=== PATIENT | female | born 1960 | race Caucasian/White ===

== ENCOUNTER → 2016-06-17 | Outpatient (CLI) | payer BC ==
[~2016-06-17] MED LIST: AMIT25TA9 PO; AZIT250T81 PO; PRED20TA PO; ZOLM2.5T5 PO
[2016-06-17 10:33] VITALS: BP 137/77
--- NOTE | 2016-06-17 10:33 | Urgent Care T Sheet Gen (E) ---
Intake General Temperature (Fahrenheit): 97.7 Pulse: 83 Blood Pressure Systolic: 137 Blood Pressure Diastolic: 77 Respirations: 18 SPO2: 98 Description of Symptoms Patient presents with possible sinus infection. States she has had nasal congestion since Michael. States her teeth started to ache a few days ago. Mild cough which she thinks is from drainage. No fever. Been taking DayQuil, Mucinex and Sudafed without lasting relief. History of Present Illness Allergies: Coded Allergies: No Known Allergies (Verified Allergy, 07/03/12) Home Meds Reported Medications Zolmitriptan (Zomig)2.5 Mg Tablet2.5 Mg PO NEEDED 07/03/12 Respiratory Constitutional Symptoms: No syptoms reported EENTM: Nose Congestion Throat pain Respiratory: Cough Cardiovascular: No symptoms reported Gastrointestinal/Abdominal: No symptoms reported All Other Systems Reviewed Remaining Systems: All other systems reviewed with negative findings Past Bailndp-Hzeedt-Tweqbi Hx Surgeries/Hospitalizations Hospitalization/Surgery Hx: NA Respiratory Respiratory History: None Cardiovascular Cardiovascular History: None Neuro/Muscular Neuro/Muscular History: Migraine Genitouinary Genitourinary History: None Gastrointestinal GI/Endocrine History: None Diabetes Diabetes: No Integumentary Integumentary History: None Cancer History of Cancer?: No Physical Exam Physical Exam General Appearance: WD/WN No apparent distress Eyes, Ears, Nose, Throat Ex: TMs normal Pharyngeal erythema (cobblestone appearance) Other (red, swollen nasal turbinates with purulent drainage.) Neck Exam: SuppleNo Lymphadenopathy Respiratory Exam: Lungs clear Normal breath sounds Cardiovascular Exam: Regular rate, rhythm Departure Urgent Care Impression Impression: Primary Impression: Sinusitis Qualified Code: J01.00 - Acute maxillary sinusitis, unspecified Departure Disposition: HOME OR SELF-CARE Condition: Stable Referrals: Jonathan Walsh MD (PCP) Additional Instructions: I have started the patient on a Z-Pack for treatment. Patient states Augmentin upsets her stomach. I have also prescribed Prednisone for inflammation and swelling. Rest. Fluids May DC OTC meds Return as needed Patient understands DC instructions. All questions were answered. Scripts Prednisone 20 Mg [id number] Mg PO DAILY #6 TAB Prov:NEY MCCLOUD 06/17/16 Azithromycin (Zithromax Z-Harsh)6 Tab/Pkt [id number] Mg PO SEE INSTRUCTIONS #6 TAB Ref 0 Day One: Take 2 tablets by mouth Days Two-Five: Take 1 tablet by mouth Prov:NEY MCCLOUD 06/17/16 End of report . NEY MCCLOUD Jun 17, 2016 10:33
== END ==
LOC: MHUC 10:11
PROVIDERS: ATTEND Physician Assistant
DX: J01.00 Acute maxillary sinusitis, unspecified (principal)
CPT/HCPCS: 99213